=== PATIENT | female | born 1955 | race Two or more races ===

== ENCOUNTER 2024-06-21 06:48 | Day surgery (SDC) | payer OTHER ==
[2024-06-13 13:13] VITALS: BP 132/83
[~2024-06-21] VITALS: Ht 152.4 cm; Wt 60.3 kg
[~2024-06-21 06:48] MED LIST: AVALIDE 150MG; CLONAZEPAM0.5 MG; HORIZANT300 MG; METFORMIN HCL500 M4; NORVASC10 MG; [UNRECOGNIZED DRUG - OTHER]
[2024-06-21] MEDS ORDERED: TYLENOL ARTHRI650 MG PO (10:16)
[2024-06-21] MEDS ORDERED: MIRALAX17 GM PO (10:16)
[2024-06-21] MEDS ORDERED: TRAMADOL HCL50 MG PO (10:16)
[2024-06-21] MEDS ORDERED: KETO10TA2 PO (10:16)
[2024-06-21] MEDS ORDERED: BUPIVACAINE HCL 30 ML VIAL IJ ONE (10:45)
[2024-06-21] MEDS ORDERED: CEFAZOLIN SODIUM 2,000 MG in 0.9 % SODIUM CHLORIDE 100 ML IV ONE (10:45)
[2024-06-21] MEDS ORDERED: KETOROLAC TROMETHAMINE 30 MG VIAL IV ONE (10:45)
[2024-06-21] MEDS ORDERED: BACITRACIN 28.35 GM OINT.TUBE TOP ONE (11:45)
[2024-06-21] MEDS ORDERED: MORPHINE SULFATE 4 MG/ML VIAL IV ONE ×2 (13:10→14:05)
== END 2024-06-21 16:00 | disposition home or self-care (01) ==
LOC: CIR.AMB 06:48
PROVIDERS: ATTEND Surgery
DX: K40.30 Unilateral inguinal hernia, with obstruction, without gangrene, not specified as recurrent (principal); I10 Essential (primary) hypertension; E11.9 Type 2 diabetes mellitus without complications; F41.9 Anxiety disorder, unspecified
CPT/HCPCS: 49507; C1781